=== PATIENT | female | born 1955 | race Asian ===

== ENCOUNTER 2021-11-15 14:42 | Outpatient (CLI) | payer BC | END 2021-11-15 20:48 | disposition home or self-care (01) | LOC: SMA 14:42 | PROVIDERS: ATTEND Internal Medicine | DX: R92.1 Mammographic calcification found on diagnostic imaging of breast (principal); N63.10 Unspecified lump in the right breast, unspecified quadrant; N64.89 Other specified disorders of breast | CPT/HCPCS: 77066 ==

== ENCOUNTER 2021-11-30 11:44 | Emergency (ER) | payer BC ==
[~2021-11-30] VITALS: Ht 154.9 cm; Wt 51.3 kg
[2021-11-30 11:48] VITALS: BP_SYST 154
--- NOTE | 2021-11-30 11:51 | NUR ---
Patient to ER bed 5 to gown for evaluation. Side rails up. Report given to CHARLIE BARAHONA.
--- NOTE | 2021-11-30 11:52 | NUR ---
Pt came in from home c/o a rash to both feet times 2 days. Pt has hx of untreated excema on her feet that she states has started to travel up her legs. Author viewed ascending rash bilaterally to both legs. Pt states the rash is itchy. Denies f/n/v. Will continue to monitor and provide care as ordered.
--- NOTE | 2021-11-30 12:00 | NUR ---
ER at bedside examining patient.
[2021-11-30] MEDS ORDERED: HYDC2.5% TP (12:11)
[2021-11-30] MEDS ORDERED: FAMOTIDINE 20 MG TABLET PO ONE (12:15)
[2021-11-30] MEDS ORDERED: DEXAMETHASONE SOD PHOSPHATE 10 MG/ML VIAL PO ONE (12:15)
--- NOTE | 2021-11-30 12:40 | NUR ---
Patient given written and verbal discharge instructions and verbalizes understanding. ER MD discussed with patient the results and treatment provided. Patient in stable condition. ID arm band removed. Rx of hydrocortisone given. Patient educated on pain management and to follow up with PMD. Opportunity for questions provided and answered. Medication side effect fact sheet provided.
[2021-11-30 12:41] VITALS: BP_SYST 142
== END 2021-11-30 12:40 | disposition home or self-care (01) ==
LOC: SED 11:44
DX: L30.9 Dermatitis, unspecified (principal); R21 Rash and other nonspecific skin eruption; I10 Essential (primary) hypertension; Z79.899 Other long term (current) drug therapy
CPT/HCPCS: 99283; J1100